=== PATIENT | male | born 1995 | race African-American/Black ===

== ENCOUNTER 2017-06-14 09:37 | Emergency (ER) | payer SELFPAY ==
[2017-06-14] MEDS ORDERED: Acetaminophen 500 MG TAB ONE (09:56)
[2017-06-14] MEDS ORDERED: Ibuprofen 800 MG TAB ONE (09:56)
== END 2017-06-14 10:25 | disposition home or self-care (01) ==
LOC: MADERS 09:37
DX: M79.1 Myalgia (principal); F17.210 Nicotine dependence, cigarettes, uncomplicated
CPT/HCPCS: 99283